=== PATIENT | male | born 1965 | race Caucasian/White ===

== ENCOUNTER 2019-06-19 15:36 | Inpatient (IN) | payer MEDICARE, OTHER ==
[2019-06-19 17:08] VITALS: BMI 22.4
--- NOTE | 2019-06-19 19:42 | HP ---
COWS - Scale Resting Pulse: 0= RI 80 or Below Sweatin= Chills/Flushing Restless Observation: 3= Extraneous Movement Pupil Size: 1= Pupils >than Normal Bone or Joint Aches: 0= None Runny Nose/ Eye Tearin= Nasal Congestion GI Upset > 30mins: 2= Nausea/Diarrhea Tremor Observation: 2= Slight Tremor Visible Yawning Observation: 0= None Anxiety or Irritability: 2=Irritable/Anxious Goose Flesh Skin: 0=Smooth Skin COWS Score: 12 CIWA Score - Admission Criteria [facility]ASAS Guidelines: Admission for Medically Managed Detox: Requires at least one of the followin. CIWA greater than 12 2. Seizures within the past 24 hours 3. Delirium tremens within the past 24 hours 4. Hallucinations within the past 24 hours 5. Acute intervention needed for co occurring medical disorder 6. Acute intervention needed for co occurring psychiatric disorder 7. Severe withdrawal that cannot be handled at a lower level of care (continued vomiting, continued diarrhea, abnormal vital signs) requiring intravenous medication and/or fluids 8. Admission ROS [facility] Allergies/Adverse Reactions: Allergies Allergy/AdvReac Type Severity Reaction Status Date / Time No Known Allergies Allergy Verified 06/19/19 16:59 History of Present Illness: This report was requested by: Corrie Villegas | Reference #: [id number] Others' Prescriptions Patient Name: Frandy Bhatt Date: 1965 Address: [address] [place] [address] Sex: Male Rx Written Rx Dispensed Drug Quantity Days Supply Prescriber Name 05/21/2019 05/22/2019 buprenorphine-naloxone 8-2 mg sl film 90 30 Mukerjee, Patricia 04/19/2019 04/23/2019 buprenorphine-naloxone 8-2 mg sl film 90 30 Mukerjee, Patricia 03/23/2019 03/23/2019 buprenorphine-naloxone 8-2 mg sl film 90 30 Mukerjee, Patricia 02/19/2019 02/20/2019 buprenorphine-naloxone 8-2 mg sl film 90 30 Mukerjee, Patricia 01/22/2019 01/23/2019 buprenorphine-naloxone 8-2 mg sl film 90 30 Mukerjee, Patricia 12/26/2018 12/26/2018 buprenorphine-naloxone 8-2 mg sl film 90 30 Mukerjee, Patricia 11/27/2018 11/27/2018 buprenorphine-naloxone 8-2 mg sl film 90 30 Patricia Taveras 10/30/2018 10/30/2018 buprenorphine-naloxone 8-2 mg sl film 90 30 Patricia Taveras 10/02/2018 10/02/2018 suboxone 8 mg-2 mg sl film 90 30 Patricia Taveras 09/19/2018 09/19/2018 suboxone 8 mg-2 mg sl film 42 14 Patricia Taveras Patient Name: Frandy Bhatt Date: 1965 Address: [facility] [place] [address] Sex: Male Rx Written Rx Dispensed Drug Quantity Days Supply Prescriber Name 09/12/2018 09/12/2018 suboxone 8 mg-2 mg sl film 21 7 Patricia Taveras 09/04/2018 09/04/2018 suboxone 8 mg-2 mg sl film 21 7 Patricia Taveras 05/09/2018 08/14/2018 zolpidem tartrate 10 mg tablet 30 30 Dagoberto Pate MD 05/09/2018 07/17/2018 zolpidem tartrate 10 mg tablet 30 30 Dagoberto Pate MD pt claims he lost his rx for Suboxone 3 weeks ago and started using heroin " I don't know , a long time ago " , current daily use 10 bags denies iv use , claims latest use yesterday morning . Planning to return to appt for rx for Suboxone " I need something now until " states was referred to this facility by " the laborer driver who brought me here " cocaine : 2 days ago , 20 $ denies IV cannabis : " someone offered me , I didn't buy it " tobacco : denies pmhx : denies psych : SAD , suicide attempts x 3 most recently 3 yrs ago by hanging pshx : left thumb frx 35 yrs ago shx : lives alone , on SSD Exam Limitations: Clinical Condition - Ebola screening Have you traveled outside of the country in the last 21 days: No Have you had contact with anyone from an Ebola affected area: No Patient History - Smoking Cessation Smoking history: Never smoked - Substances abused Heroin Substance route: Inhalation Frequency: Daily Amount used: 10 bags Age of first use: 26 Date of last use: 06/18/19 Admission Physical Exam S - Vital Signs Vital Signs: Vital Signs - 24 hr 06/19/19 16:58 Temperature 98.4 F Pulse Rate 74 Respiratory 16 Rate Blood Pressure 126/77 - Physical General Appearance: Yes: Moderate Distress, Irritable, Anxious HEENTM: Yes: EOMI, Hearing grossly Normal, Normocephalic, Normal Voice, Other ( dilated pupils) Respiratory: Yes: Chest Non-Tender, Lungs Clear, Normal Breath Sounds, No Respiratory Distress, No Accessory Muscle Use Neck: Yes: No masses,lesions,Nodules, Trachea in good position Cardiology: Yes: Regular Rhythm, Regular Rate, S1, S2 Abdominal: Yes: Soft, Tenderness (mild , diffuse), Other (hyperactive BS x 4) Musculoskeletal: Yes: Gait Steady Extremities: Yes: Normal Range of Motion, Non-Tender, Tremors Neurological: Yes: Fully Oriented, Alert, Motor Strength 5/5 Integumentary: Yes: Warm, Other (LLE superficial excoriations anterior tibia - denies recent injuries) - Diagnostic (1) Opiate use Current Visit: Yes Status: Acute (2) Cocaine abuse, episodic use Current Visit: Yes Status: Chronic Breathalyzer - Breathalyzer Breathalyzer: 0 Inpatient Rehab Admission - Rehab Decision to Admit Inpatient rehab admission?: No
[2019-06-19] MEDS ORDERED: ACETAMINOPHEN 325 MG TABLET (FP) PO PRN ×2 (19:52)
[2019-06-19] MEDS ORDERED: MAGNESIUM HYDROX 2400MG/30ML ORAL SUSPENSION 30 ML CUP PO PRN (19:52)
[2019-06-19] MEDS ORDERED: METHOCARBAMOL 500 MG TABLET PO PRN (19:52)
[2019-06-19] MEDS ORDERED: hydrOXYzine PAMOATE 25 MG CAPSULE (FP) PO PRN (19:52)
[2019-06-19] MEDS ORDERED: PROCHLORPERAZINE MALEATE 5 MG TABLET PO PRN (19:52)
[2019-06-19] MEDS ORDERED: MENTHOL/PHENOL 1 EACH UD MM PRN (19:52)
[2019-06-19] MEDS ORDERED: MAG HYDROX/AL HYDROX/SIMETH 30 ML UNIT-DOSE CUP PO PRN (19:52)
[2019-06-19] MEDS ORDERED: IBUPROFEN 400 MG TABLET (FP) PO PRN (19:52)
[2019-06-19] MEDS ORDERED: BISMUTH SUBSALICYLATE 524 MG/30 ML UD PO PRN (19:52)
[2019-06-19] MEDS ORDERED: MAGNESIUM CITRATE 300 ML BOTTLE PO PRN (19:52)
[2019-06-19] MEDS ORDERED: cloNIDine HCL 0.1 MG TABLET PO PRN (19:54)
[2019-06-19] MEDS ORDERED: METHADONE HCL 10 MG TABLET (FOR DETOX USE ONLY) PO ONE (19:54)
[2019-06-19] MEDS ORDERED: THIAMINE HCL 100 MG TABLET (FP) PO SCH (22:00)
[2019-06-19] MEDS ORDERED: MELATONIN 5 MG TABLETS PO PRN (22:00)
--- NOTE | 2019-06-20 08:17 | CONSULT ---
[facility] - Data Date of interview: 06/20/19 Admission source: Self-referred Identifying data: Mr Bhatt is a 53 years old male, father of a 24 years old son, unemployed Psychiatric History: Patient came to the office for interview. As sba underwriter started asking him questions, he said:" I don't want to discuss my personel issues and he walked out"
[2019-06-20] MEDS ORDERED: METHADONE HCL 5 MG TABLET (FOR DETOX USE ONLY) PO ONE (10:00)
[2019-06-20] MEDS ORDERED: PRENATAL VITAMINS W/ FOLIC ACID TABLET (FP) PO SCH (10:00)
[2019-06-20 10:18] LABS: MCHC 33.2 g/dl (32.0-35.9); MEAN CELL VOLUME 93.3 fl (80-96); MEAN PLT VOLUME 8.9 fl (7.5-11.1); PLATELET COUNT 239 K/MM3 (134-434); RDW 13.1 % (11.9-15.9); WHITE BLOOD COUNT 7.4 K/mm3 (4.0-10.0)
[2019-06-20 10:26] LABS: ALBUMIN 3.2 g/dl (3.4-5.0); BILIRUBIN,TOTAL 0.5 mg/dL (0.2-1); BLOOD UREA NITROGEN 16.9 mg/dL (7-18); CALCIUM 9.4 mg/dL (8.5-10.1); CREATININE 1.1 mg/dL (0.55-1.3); POTASSIUM 4.4 mmol/L (3.5-5.1); TOT PROT 6.4 g/dl (6.4-8.2)
--- NOTE | 2019-06-20 10:31 | PN ---
[facility] COWS - Scale Resting Pulse: 0= NM 80 or Below Sweatin= No chills or Flushing Restless Observation: 1= Difficult to Sit Still Pupil Size: 1= Pupils >than Normal Bone or Joint Aches: 1= Mild Discomfort Runny Nose/ Eye Tearin= Nasal Congestion GI Upset > 30mins: 1= Stomach Cramp Tremor Observation of Outstretched Hands: 2= Slight Tremor Visible Yawning Observation: 1= 1-2x During Session Anxiety or Irritability: 2=Irritable/Anxious Goose Flesh Skin: 0=Smooth Skin COWS Score: 10 [facility] Progress Note (SOAP) Subjective: alert,irritable,anxious,interrupted sleep,tremor,pain in the body and back Objective: 06/20/19 10:30 Vital Signs Temperature 97.6 F 06/20/19 09:25 Pulse Rate 71 06/20/19 09:25 Respiratory Rate 18 06/20/19 09:25 Blood Pressure 110/58 L 06/20/19 09:25 O2 Sat by Pulse Oximetry (%) Laboratory Last Values WBC 7.4 K/mm3 (4.0-10.0) 06/20/19 08:15 RBC 4.50 M/mm3 (4.00-5.60) 06/20/19 08:15 Hgb 14.0 GM/dL (11.7-16.9) 06/20/19 08:15 Hct 42.0 % (35.4-49) 06/20/19 08:15 MCV 93.3 fl (80-96) 06/20/19 08:15 MCH 31.0 pg (25.7-33.7) 06/20/19 08:15 MCHC 33.2 g/dl (32.0-35.9) 06/20/19 08:15 RDW 13.1 % (11.9-15.9) 06/20/19 08:15 Plt Count 239 K/MM3 (134-434) 06/20/19 08:15 MPV 8.9 fl (7.5-11.1) 06/20/19 08:15 Sodium 140 mmol/L (136-145) 06/20/19 08:15 Potassium 4.4 mmol/L (3.5-5.1) 06/20/19 08:15 Chloride 109 mmol/L (98-107) H 06/20/19 08:15 Carbon Dioxide 29 mmol/L (21-32) 06/20/19 08:15 Anion Gap 2 MMOL/L (8-16) L 06/20/19 08:15 BUN 16.9 mg/dL (7-18) 06/20/19 08:15 Creatinine 1.1 mg/dL (0.55-1.3) 06/20/19 08:15 Est GFR (CKD-EPI)AfAm 88.98 06/20/19 08:15 Est GFR (CKD-EPI)NonAf 76.77 06/20/19 08:15 Random Glucose 80 mg/dL (74-106) 06/20/19 08:15 Calcium 9.4 mg/dL (8.5-10.1) 06/20/19 08:15 Total Bilirubin 0.5 mg/dL (0.2-1) 06/20/19 08:15 AST 14 U/L (15-37) L 06/20/19 08:15 ALT 16 U/L (13-61) 06/20/19 08:15 Alkaline Phosphatase 62 U/L (45-117) 06/20/19 08:15 Total Protein 6.4 g/dl (6.4-8.2) 06/20/19 08:15 Albumin 3.2 g/dl (3.4-5.0) L 06/20/19 08:15 Assessment: 06/20/19 10:30 withdrawal symptom Plan: continue detox methadone regimen
[2019-06-20 12:57] VITALS: BP 118/71; PULSE 59; TEMP 98.2
--- NOTE | 2019-06-20 18:11 | DS ---
[facility] Detox Discharge Summary Admission Date: 06/19/19 - History Present History: Opioid Dependence Pertinent Past History: pt states he wants to leave today. Did not give a reason. Pt was admitted yesterday. According to the admit note pt has an appointment with prescribing provider for Suboxone. Pt states does not need any meds - Physical Exam Results Vital Signs: Vital Signs Temperature 98.2 F 06/20/19 12:56 Pulse Rate 59 L 06/20/19 12:56 Respiratory Rate 06/20/19 12:56 Blood Pressure 118/71 06/20/19 12:56 O2 Sat by Pulse Oximetry (%) - Medication Discharge Medications: Ambulatory Orders Quetiapine Fumarate [Seroquel -] 200 mg PO HS 06/19/19 Sertraline HCl [Zoloft -] 100 mg PO HS 06/19/19 - AMA Did Patient Leave Against Medical Advice: Yes
[2019-06-21] MEDS ORDERED: METHADONE HCL 10 MG TABLET (FOR DETOX USE ONLY) PO ONE (10:00)
[2019-06-22] MEDS ORDERED: METHADONE HCL 5 MG TABLET (FOR DETOX USE ONLY) PO ONE (06:00)
--- NOTE | 2019-06-22 13:25 | EKG ---
Test Reason : Blood Pressure : / mmHG Vent. Rate : 059 BPM Atrial Rate : 059 BPM P-R Int : 142 ms QRS Dur : 084 ms QT Int : 418 ms P-R-T Axes : 032 073 070 degrees QTc Int : 413 ms SINUS BRADYCARDIA NO PREVIOUS ECGS AVAILABLE Confirmed by NOHEMY MARCH MD ([id number]) on 06/22/2019 1:24:38 PM Referred By: SUSANNE VILLEGAS Confirmed By:NOHEMY MARCH MD
== END 2019-06-20 18:22 | disposition home or self-care (01) | DRG 897 ==
LOC: YASAS 15:36 → Y6N 20:54
PROVIDERS: ADMIT Allergy & Immunology; ATTEND Allergy & Immunology
PROC: HZ2ZZZZ Detoxification Services for Substance Abuse Treatment (ICD-10-PCS; principal; 2019-06-19)
DX: F11.23 Opioid dependence with withdrawal (principal); F14.10 Cocaine abuse, uncomplicated; Z91.5 Personal history of self-harm
CPT/HCPCS: 36415; 80053; 85027; 86593; 93005; 93010

== ENCOUNTER 2023-06-25 08:56 | Inpatient (IN) | payer OTHER ==
[2023-06-25 09:26] VITALS: BMI 20.7
[2023-06-25] MEDS ORDERED: POLYETHYLENE GLYCOL (HEALTHYLAX) 3350 17 GM PACKET PO PRN (09:41)
[2023-06-25] MEDS ORDERED: hydrOXYzine PAMOATE 25 MG CAPSULE (FP) PO PRN (09:41)
[2023-06-25] MEDS ORDERED: LOPERAMIDE HCL 2 MG CAPSULE PO PRN (09:41)
[2023-06-25] MEDS ORDERED: NALOXONE HCL 0.4 MG/ML VIAL IM PRN (09:41)
[2023-06-25] MEDS ORDERED: DICYCLOMINE HCL 10 MG CAPSULE PO PRN (09:41)
[2023-06-25] MEDS ORDERED: ACETAMINOPHEN 325 MG TABLET (FP) PO PRN (09:41)
[2023-06-25] MEDS ORDERED: ONDANSETRON *ODT* 4 MG TABLET SL PRN (09:41)
[2023-06-25] MEDS ORDERED: IBUPROFEN 600 MG TABLET (FP) PO PRN (09:41)
[2023-06-25] MEDS ORDERED: BENZOCAINE/MENTHOL (CHLORASEPTIC ) LOZENGE MM PRN (09:41)
[2023-06-25] MEDS ORDERED: BISMUTH SUBSALICYLATE 524 MG/30 ML PO PRN (09:41)
[2023-06-25] MEDS ORDERED: cloNIDine HCL 0.1 MG TABLET PO PRN (09:41)
[2023-06-25] MEDS ORDERED: MAG HYDROX/AL HYDROX/SIMETH 30 ML UNIT-DOSE CUP PO PRN (09:41)
[2023-06-25] MEDS ORDERED: BENZONATATE 200 MG CAPSULE PO PRN (09:41)
[2023-06-25] MEDS ORDERED: IBUPROFEN 400 MG TABLET (FP) PO PRN (09:41)
[2023-06-25] MEDS ORDERED: METHOCARBAMOL 500 MG TABLET PO PRN (09:41)
[2023-06-25] MEDS ORDERED: NALOXONE HCL (KLOXXADO) 8 MG SPRAY NS PRN (09:41)
[2023-06-25] MEDS ORDERED: guaiFENesin 600 MG TABLET.ER (FP) PO PRN (09:41)
[2023-06-25] MEDS ORDERED: MAGNESIUM HYDROX 2400MG/30ML ORAL SUSPENSION 30 ML CUP PO PRN (09:41)
[2023-06-25] MEDS ORDERED: methaDONE HCL 10 MG TABLET (FOR DETOX USE ONLY) ONE (09:53)
[2023-06-25] MEDS ORDERED: methaDONE HCL 10 MG TABLET (FOR DETOX USE ONLY) PO ONE (10:15)
[2023-06-25] MEDS: PRENATAL VITAMINS W/ FOLIC ACID TABLET (FP) PO SCH (10:17)
[2023-06-25] MEDS ORDERED: diazePAM 5 MG TABLET ONE (11:10)
[2023-06-25] MEDS: diazePAM 5 MG TABLET PO PRN ×2 (11:12→20:24)
[2023-06-25] MEDS: TAMSULOSIN HCL 0.4 MG CAP PO SCH (15:32)
[2023-06-25] MEDS: THIAMINE HCL 100 MG TABLET (FP) PO SCH (23:45)
[2023-06-25] MEDS: MELATONIN 5 MG TABLETS PO SCH (23:45)
[2023-06-25] MEDS: QUEtiapine FUMARATE 100 MG TABLET (FP) PO SCH (23:45)
[2023-06-26] MEDS: DEXTROAMPHETAMINE/AMPHETAMINE 10 MG CAP.ER.24H PO SCH (10:28)
[2023-06-26] MEDS: PRENATAL VITAMINS W/ FOLIC ACID TABLET (FP) PO SCH (10:28)
[2023-06-26] MEDS: SERTRALINE HCL 50 MG TABLET (FP) PO SCH (10:29)
[2023-06-26] MEDS: TAMSULOSIN HCL 0.4 MG CAP PO SCH (10:29)
[2023-06-26] MEDS: diazePAM 5 MG TABLET PO PRN ×2 (10:59→18:59)
[2023-06-26] MEDS: MELATONIN 5 MG TABLETS PO SCH (23:03)
[2023-06-26] MEDS: THIAMINE HCL 100 MG TABLET (FP) PO SCH (23:03)
[2023-06-26] MEDS: QUEtiapine FUMARATE 100 MG TABLET (FP) PO SCH (23:03)
[2023-06-27] MEDS ORDERED: methaDONE HCL 10 MG TABLET (FOR DETOX USE ONLY) PO ONE (10:00)
[2023-06-27] MEDS: SERTRALINE HCL 50 MG TABLET (FP) PO SCH (10:08)
[2023-06-27] MEDS: TAMSULOSIN HCL 0.4 MG CAP PO SCH (10:08)
[2023-06-27] MEDS: DEXTROAMPHETAMINE/AMPHETAMINE 10 MG CAP.ER.24H PO SCH (10:08)
[2023-06-27] MEDS: PRENATAL VITAMINS W/ FOLIC ACID TABLET (FP) PO SCH (10:10)
[2023-06-27] MEDS: diazePAM 5 MG TABLET PO PRN (10:10)
[2023-06-27 13:45] VITALS: BP 111/67; PULSE 85; RESP 18; TEMP 98.2
[2023-06-29] MEDS ORDERED: methaDONE HCL 10 MG TABLET (FOR DETOX USE ONLY) PO ONE (10:00)
== END 2023-06-27 15:20 | disposition left against medical advice (07) | DRG 894 ==
LOC: YASAS 08:56 → Y3N 10:41
PROVIDERS: ADMIT Allergy & Immunology; ATTEND Surgery
PROC: HZ2ZZZZ Detoxification Services for Substance Abuse Treatment (ICD-10-PCS; principal; 2023-06-25)
DX: F11.23 Opioid dependence with withdrawal (principal); F14.20 Cocaine dependence, uncomplicated; F10.230 Alcohol dependence with withdrawal, uncomplicated; F12.20 Cannabis dependence, uncomplicated; F25.9 Schizoaffective disorder, unspecified; F19.24 Other psychoactive substance dependence with psychoactive substance-induced mood disorder; F41.1 Generalized anxiety disorder; N40.0 Benign prostatic hyperplasia without lower urinary tract symptoms; Z63.4 Disappearance and death of family member
CPT/HCPCS: 87635

== ENCOUNTER 2023-07-23 15:12 | Inpatient (IN) | payer OTHER ==
[2023-07-23 16:42] VITALS: BMI 20.7
[2023-07-23] MEDS ORDERED: LOPERAMIDE HCL 2 MG CAPSULE PO PRN (17:08)
[2023-07-23] MEDS ORDERED: MAGNESIUM HYDROX 2400MG/30ML ORAL SUSPENSION 30 ML CUP PO PRN (17:08)
[2023-07-23] MEDS ORDERED: DOCUSATE SODIUM 100 MG CAPSULE (FP) PO PRN (17:08)
[2023-07-23] MEDS ORDERED: BENZOCAINE/MENTHOL (CHLORASEPTIC ) LOZENGE MM PRN (17:08)
[2023-07-23] MEDS ORDERED: NALOXONE HCL 0.4 MG/ML VIAL IM PRN (17:08)
[2023-07-23] MEDS ORDERED: BENZONATATE 200 MG CAPSULE PO PRN (17:08)
[2023-07-23] MEDS ORDERED: POLYETHYLENE GLYCOL (HEALTHYLAX) 3350 17 GM PACKET PO PRN (17:08)
[2023-07-23] MEDS ORDERED: NICOTINE POLACRILEX 2 MG GUM BUC PRN (17:08)
[2023-07-23] MEDS ORDERED: ACETAMINOPHEN 325 MG TABLET (FP) PO PRN (17:08)
[2023-07-23] MEDS ORDERED: NALOXONE HCL (KLOXXADO) 8 MG SPRAY NS PRN (17:08)
[2023-07-23] MEDS ORDERED: BISMUTH SUBSALICYLATE 524 MG/30 ML PO PRN (17:08)
[2023-07-23] MEDS ORDERED: MAG HYDROX/AL HYDROX/SIMETH 30 ML UNIT-DOSE CUP PO PRN (17:08)
[2023-07-23] MEDS ORDERED: guaiFENesin 600 MG TABLET.ER (FP) PO PRN (17:08)
[2023-07-23] MEDS ORDERED: IBUPROFEN 400 MG TABLET (FP) PO PRN (17:08)
[2023-07-23] MEDS ORDERED: P-EPHED 60MG/TRIPROLIDI 2.5MG TABLET PO PRN (17:08)
[2023-07-23] MEDS ORDERED: ONDANSETRON *ODT* 4 MG TABLET SL PRN (17:08)
[2023-07-23] MEDS ORDERED: IBUPROFEN 600 MG TABLET (FP) PO PRN (17:08)
[2023-07-23] MEDS ORDERED: DICYCLOMINE HCL 10 MG CAPSULE PO PRN (17:08)
[2023-07-23] MEDS ORDERED: methaDONE HCL 10 MG TABLET (FOR DETOX USE ONLY) PO ONE (17:42)
[2023-07-23] MEDS ORDERED: cloNIDine HCL 0.1 MG TABLET PO PRN (17:42)
[2023-07-23] MEDS ORDERED: METHOCARBAMOL 500 MG TABLET ONE (17:50)
[2023-07-23] MEDS ORDERED: methaDONE HCL 10 MG TABLET (FOR DETOX USE ONLY) ONE (17:50)
[2023-07-23] MEDS: METHOCARBAMOL 500 MG TABLET PO PRN (17:58)
[2023-07-23] MEDS ORDERED: MELATONIN 5 MG TABLETS PO SCH (22:00)
[2023-07-23] MEDS: TAMSULOSIN HCL 0.4 MG CAP PO SCH (22:36)
[2023-07-23] MEDS: THIAMINE HCL 100 MG TABLET (FP) PO SCH (22:36)
[2023-07-24] MEDS: PRENATAL VITAMINS W/ FOLIC ACID TABLET (FP) PO SCH (10:38)
[2023-07-24] MEDS: diazePAM 5 MG TABLET PO PRN ×3 (10:39→22:20)
[2023-07-24] MEDS: METHOCARBAMOL 500 MG TABLET PO PRN (10:41)
[2023-07-24] MEDS: DEXTROAMPHETAMINE/AMPHETAMINE 10 MG CAP.ER.24H PO SCH (11:42)
[2023-07-24] MEDS ORDERED: QUEtiapine FUMARATE 100 MG TABLET (FP) PO SCH (22:00)
[2023-07-24] MEDS: THIAMINE HCL 100 MG TABLET (FP) PO SCH (22:20)
[2023-07-24] MEDS: SERTRALINE HCL 50 MG TABLET (FP) PO SCH (22:20)
[2023-07-24] MEDS: TAMSULOSIN HCL 0.4 MG CAP PO SCH (22:20)
[2023-07-25] MEDS ORDERED: methaDONE HCL 10 MG TABLET (FOR DETOX USE ONLY) PO ONE (10:00)
[2023-07-25] MEDS: DEXTROAMPHETAMINE/AMPHETAMINE 10 MG CAP.ER.24H PO SCH (10:25)
[2023-07-25] MEDS: PRENATAL VITAMINS W/ FOLIC ACID TABLET (FP) PO SCH (10:26)
[2023-07-25] MEDS: diazePAM 5 MG TABLET PO PRN ×2 (17:48→22:19)
[2023-07-25] MEDS: TAMSULOSIN HCL 0.4 MG CAP PO SCH (22:19)
[2023-07-25] MEDS: QUEtiapine FUMARATE 100 MG TABLET (FP) PO SCH (22:19)
[2023-07-25] MEDS: SERTRALINE HCL 50 MG TABLET (FP) PO SCH (22:19)
[2023-07-25] MEDS: THIAMINE HCL 100 MG TABLET (FP) PO SCH (22:19)
[2023-07-26] MEDS: DEXTROAMPHETAMINE/AMPHETAMINE 10 MG CAP.ER.24H PO SCH (09:40)
[2023-07-26] MEDS: PRENATAL VITAMINS W/ FOLIC ACID TABLET (FP) PO SCH (09:41)
[2023-07-26] MEDS: SERTRALINE HCL 50 MG TABLET (FP) PO SCH (21:22)
[2023-07-26] MEDS: TAMSULOSIN HCL 0.4 MG CAP PO SCH (21:22)
[2023-07-26] MEDS: QUEtiapine FUMARATE 100 MG TABLET (FP) PO SCH (21:22)
[2023-07-26] MEDS: THIAMINE HCL 100 MG TABLET (FP) PO SCH (21:23)
[2023-07-27] MEDS: DEXTROAMPHETAMINE/AMPHETAMINE 10 MG CAP.ER.24H PO SCH (09:38)
[2023-07-27] MEDS: PRENATAL VITAMINS W/ FOLIC ACID TABLET (FP) PO SCH (09:39)
[2023-07-27] MEDS ORDERED: methaDONE HCL 10 MG TABLET (FOR DETOX USE ONLY) PO ONE (10:00)
[2023-07-27 10:41] LABS: POTASSIUM 3.8 mmol/L (3.5-5.1)
[2023-07-27 10:45] LABS: HEMATOCRIT 37.9 % (35.4-49); HEMOGLOBIN 12.4 GM/dL (11.7-16.9); MCH 30.7 pg (25.7-33.7); MCHC 32.7 g/dl (32.0-35.9); MEAN CELL VOLUME 93.8 fl (80-96); PLATELET COUNT 178 10^3/uL (134-434); RBC 4.04 M/mm3 (4.00-5.60); RDW 13.2 % (11.9-15.9); WHITE BLOOD COUNT 9.4 K/mm3 (4.0-10.0)
[2023-07-27 11:19] LABS: CALCIUM 8.8 mg/dL (8.5-10.1)
[2023-07-27 11:21] LABS: ALBUMIN 2.4 g/dl (3.4-5.0)
[2023-07-27 11:24] LABS: CREATININE 0.8 mg/dL (0.55-1.3)
[2023-07-27 11:25] LABS: TOT PROT 5.9 g/dl (6.4-8.2)
[2023-07-27 11:26] LABS: BILIRUBIN,TOTAL 0.5 mg/dL (0.2-1)
[2023-07-27] MEDS: TAMSULOSIN HCL 0.4 MG CAP PO SCH (22:52)
[2023-07-27] MEDS: THIAMINE HCL 100 MG TABLET (FP) PO SCH (22:52)
[2023-07-27] MEDS: QUEtiapine FUMARATE 100 MG TABLET (FP) PO SCH (22:53)
[2023-07-27] MEDS: SERTRALINE HCL 50 MG TABLET (FP) PO SCH (22:53)
[2023-07-28 06:35] VITALS: RESP 16
[2023-07-28] MEDS: DEXTROAMPHETAMINE/AMPHETAMINE 10 MG CAP.ER.24H PO SCH (10:56)
[2023-07-28] MEDS: PRENATAL VITAMINS W/ FOLIC ACID TABLET (FP) PO SCH (10:56)
[2023-07-28 11:08] VITALS: BP 93/65; PULSE 69; TEMP 96.9
== END 2023-07-28 14:20 | disposition other institution (70) | DRG 897 ==
LOC: YASAS 15:12 → Y3N 17:27 → Y6N 07-27 13:27
PROVIDERS: ADMIT Allergy & Immunology; ATTEND Surgery
PROC: HZ2ZZZZ Detoxification Services for Substance Abuse Treatment (ICD-10-PCS; principal; 2023-07-23)
DX: F11.23 Opioid dependence with withdrawal (principal); F14.20 Cocaine dependence, uncomplicated; F19.282 Other psychoactive substance dependence with psychoactive substance-induced sleep disorder; F19.280 Other psychoactive substance dependence with psychoactive substance-induced anxiety disorder; F25.9 Schizoaffective disorder, unspecified; F90.9 Attention-deficit hyperactivity disorder, unspecified type; N40.0 Benign prostatic hyperplasia without lower urinary tract symptoms
CPT/HCPCS: 36415; 80053; 83036; 85027; 86780; 87635; 87811

== ENCOUNTER 2023-07-28 14:37 | Inpatient (IN) | payer OTHER ==
[2023-07-28 15:20] VITALS: BMI 20.2
[2023-07-28] MEDS ORDERED: guaiFENesin 600 MG TABLET.ER (FP) PO PRN (15:25)
[2023-07-28] MEDS ORDERED: LOPERAMIDE HCL 2 MG CAPSULE PO PRN (15:25)
[2023-07-28] MEDS ORDERED: MAG HYDROX/AL HYDROX/SIMETH 30 ML UNIT-DOSE CUP PO PRN (15:25)
[2023-07-28] MEDS ORDERED: BENZONATATE 200 MG CAPSULE PO PRN (15:25)
[2023-07-28] MEDS ORDERED: POLYETHYLENE GLYCOL (HEALTHYLAX) 3350 17 GM PACKET PO PRN (15:25)
[2023-07-28] MEDS ORDERED: NALOXONE HCL (KLOXXADO) 8 MG SPRAY NS PRN (15:25)
[2023-07-28] MEDS ORDERED: IBUPROFEN 400 MG TABLET (FP) PO PRN (15:25)
[2023-07-28] MEDS ORDERED: hydrOXYzine PAMOATE 25 MG CAPSULE (FP) PO PRN (15:25)
[2023-07-28] MEDS ORDERED: IBUPROFEN 600 MG TABLET (FP) PO PRN (15:25)
[2023-07-28] MEDS ORDERED: BENZOCAINE/MENTHOL (CHLORASEPTIC ) LOZENGE MM PRN (15:25)
[2023-07-28] MEDS ORDERED: ACETAMINOPHEN 325 MG TABLET (FP) PO PRN (15:25)
[2023-07-28] MEDS ORDERED: NICOTINE 14 MG/24 HOURS TOPICAL PATCH TD PRN (15:25)
[2023-07-28] MEDS ORDERED: COLLOIDAL OATMEAL 1 BAR EACH TP PRN (15:25)
[2023-07-28] MEDS ORDERED: NALOXONE HCL 0.4 MG/ML VIAL IVPUSH PRN (15:25)
[2023-07-28] MEDS ORDERED: MAGNESIUM HYDROX 2400MG/30ML ORAL SUSPENSION 30 ML CUP PO PRN (15:25)
[2023-07-28] MEDS ORDERED: AMMONIUM LACTATE 12% LOTION 225 GM BOTTLE TP PRN (15:25)
[2023-07-28] MEDS ORDERED: NICOTINE POLACRILEX 4 MG GUM BUC PRN (15:25)
[2023-07-28] MEDS ORDERED: METHOCARBAMOL 500 MG TABLET PO PRN (15:25)
[2023-07-28] MEDS: MELATONIN 5 MG TABLETS PO SCH (21:24)
[2023-07-28] MEDS: THIAMINE HCL 100 MG TABLET (FP) PO SCH (21:25)
[2023-07-28] MEDS: QUEtiapine FUMARATE 100 MG TABLET (FP) PO SCH (21:25)
[2023-07-28] MEDS: TAMSULOSIN HCL 0.4 MG CAP PO SCH (21:25)
[2023-07-28] MEDS ORDERED: SERTRALINE HCL 50 MG TABLET (FP) PO SCH (22:00)
[2023-07-29 07:03] VITALS: BP 106/61; PULSE 68; RESP 18; TEMP 97.7
[2023-07-29] MEDS ORDERED: SERTRALINE HCL 50 MG TABLET (FP) PO SCH (08:57)
[2023-07-29] MEDS: DEXTROAMPHETAMINE/AMPHETAMINE 10 MG CAP.ER.24H PO SCH (09:24)
[2023-07-29] MEDS: PRENATAL VITAMINS W/ FOLIC ACID TABLET (FP) PO SCH (09:25)
[2023-07-29] MEDS: SERTRALINE HCL 50 MG TABLET (FP) PO SCH (09:27)
[2023-07-29] MEDS: THIAMINE HCL 100 MG TABLET (FP) PO SCH (21:14)
[2023-07-29] MEDS: MELATONIN 5 MG TABLETS PO SCH (21:14)
[2023-07-29] MEDS: QUEtiapine FUMARATE 100 MG TABLET (FP) PO SCH (21:14)
[2023-07-29] MEDS: TAMSULOSIN HCL 0.4 MG CAP PO SCH (21:14)
[2023-07-30] MEDS: PRENATAL VITAMINS W/ FOLIC ACID TABLET (FP) PO SCH (09:47)
[2023-07-30] MEDS: SERTRALINE HCL 50 MG TABLET (FP) PO SCH (09:47)
[2023-07-30] MEDS: DEXTROAMPHETAMINE/AMPHETAMINE 10 MG CAP.ER.24H PO SCH (09:48)
== END 2023-07-30 18:38 | disposition left against medical advice (07) | DRG 894 ==
LOC: YASAS 14:37 → Y5N 14:38
PROVIDERS: ADMIT Allergy & Immunology; ATTEND Psychiatry & Neurology Pain Medicine
PROC: HZ42ZZZ Group Counseling for Substance Abuse Treatment, Cognitive-Behavioral (ICD-10-PCS; principal; 2023-07-28)
DX: F11.20 Opioid dependence, uncomplicated (principal); F14.20 Cocaine dependence, uncomplicated; F25.9 Schizoaffective disorder, unspecified; F90.9 Attention-deficit hyperactivity disorder, unspecified type; F41.9 Anxiety disorder, unspecified; N40.0 Benign prostatic hyperplasia without lower urinary tract symptoms

== ENCOUNTER 2023-08-23 17:00 | Inpatient (IN) | payer OTHER ==
[2023-08-23 17:58] VITALS: BMI 23.3
[2023-08-23] MEDS ORDERED: LOPERAMIDE HCL 2 MG CAPSULE PO PRN (22:31)
[2023-08-23] MEDS ORDERED: ONDANSETRON *ODT* 4 MG TABLET SL PRN (22:31)
[2023-08-23] MEDS ORDERED: NALOXONE HCL (KLOXXADO) 8 MG SPRAY NS PRN (22:31)
[2023-08-23] MEDS ORDERED: MAG HYDROX/AL HYDROX/SIMETH 30 ML UNIT-DOSE CUP PO PRN (22:31)
[2023-08-23] MEDS ORDERED: NICOTINE POLACRILEX 2 MG LOZENGE BC PRN (22:31)
[2023-08-23] MEDS ORDERED: BISMUTH SUBSALICYLATE 524 MG/30 ML PO PRN (22:31)
[2023-08-23] MEDS ORDERED: P-EPHED 60MG/TRIPROLIDI 2.5MG TABLET PO PRN (22:31)
[2023-08-23] MEDS ORDERED: guaiFENesin 600 MG TABLET.ER (FP) PO PRN (22:31)
[2023-08-23] MEDS ORDERED: MAGNESIUM HYDROX 2400MG/30ML ORAL SUSPENSION 30 ML CUP PO PRN (22:31)
[2023-08-23] MEDS ORDERED: ACETAMINOPHEN 325 MG TABLET (FP) PO PRN (22:31)
[2023-08-23] MEDS ORDERED: BENZOCAINE/MENTHOL (CHLORASEPTIC ) LOZENGE MM PRN (22:31)
[2023-08-23] MEDS ORDERED: POLYETHYLENE GLYCOL (HEALTHYLAX) 3350 17 GM PACKET PO PRN (22:31)
[2023-08-23] MEDS ORDERED: IBUPROFEN 600 MG TABLET (FP) PO PRN (22:31)
[2023-08-23] MEDS ORDERED: IBUPROFEN 400 MG TABLET (FP) PO PRN (22:31)
[2023-08-23] MEDS ORDERED: NALOXONE HCL 0.4 MG/ML VIAL IM PRN (22:31)
[2023-08-23] MEDS ORDERED: DICYCLOMINE HCL 10 MG CAPSULE PO PRN (22:31)
[2023-08-23] MEDS ORDERED: BENZONATATE 200 MG CAPSULE PO PRN (22:31)
[2023-08-23] MEDS ORDERED: methaDONE HCL 10 MG TABLET (FOR DETOX USE ONLY) PO ONE (23:30)
[2023-08-24] MEDS: METHOCARBAMOL 500 MG TABLET PO PRN ×3 (03:45→19:55)
[2023-08-24] MEDS: TAMSULOSIN HCL 0.4 MG CAP PO SCH (07:43)
[2023-08-24] MEDS: PRENATAL VITAMINS W/ FOLIC ACID TABLET (FP) PO SCH (09:55)
[2023-08-24] MEDS: NICOTINE 21 MG/24 HOURS TOPICAL PATCH TD SCH (09:59)
[2023-08-24] MEDS: SERTRALINE HCL 50 MG TABLET (FP) PO SCH (11:31)
[2023-08-24] MEDS: DEXTROAMPHETAMINE/AMPHETAMINE 10 MG CAP.ER.24H PO SCH (11:31)
[2023-08-24 12:42] LABS: HIV INTERPRETATION NEGATIVE (NEGATIVE)
[2023-08-24] MEDS ORDERED: methaDONE HCL 10 MG TABLET PO ONE (13:21)
[2023-08-24] MEDS: THIAMINE HCL 100 MG TABLET (FP) PO SCH (21:53)
[2023-08-24] MEDS: QUEtiapine FUMARATE 300 MG TABLET PO SCH (21:53)
[2023-08-24] MEDS ORDERED: MELATONIN 5 MG TABLETS PO SCH (22:00)
[2023-08-25] MEDS: TAMSULOSIN HCL 0.4 MG CAP PO SCH (09:06)
[2023-08-25] MEDS ORDERED: methaDONE HCL 10 MG TABLET (FOR DETOX USE ONLY) PO ONE (10:00)
[2023-08-25] MEDS: DEXTROAMPHETAMINE/AMPHETAMINE 10 MG CAP.ER.24H PO SCH (10:12)
[2023-08-25] MEDS: PRENATAL VITAMINS W/ FOLIC ACID TABLET (FP) PO SCH (10:13)
[2023-08-25] MEDS: SERTRALINE HCL 50 MG TABLET (FP) PO SCH (10:13)
[2023-08-25] MEDS: NICOTINE 21 MG/24 HOURS TOPICAL PATCH TD SCH (10:13)
[2023-08-25] MEDS: METHOCARBAMOL 500 MG TABLET PO PRN (11:11)
[2023-08-25] MEDS ORDERED: diazePAM 5 MG TABLET PO PRN (13:43)
[2023-08-25] MEDS: QUEtiapine FUMARATE 300 MG TABLET PO SCH (22:06)
[2023-08-25] MEDS: THIAMINE HCL 100 MG TABLET (FP) PO SCH (22:06)
[2023-08-26] MEDS: TAMSULOSIN HCL 0.4 MG CAP PO SCH (07:41)
[2023-08-26] MEDS: DEXTROAMPHETAMINE/AMPHETAMINE 10 MG CAP.ER.24H PO SCH (10:18)
[2023-08-26] MEDS: PRENATAL VITAMINS W/ FOLIC ACID TABLET (FP) PO SCH (10:19)
[2023-08-26] MEDS: SERTRALINE HCL 50 MG TABLET (FP) PO SCH (10:19)
[2023-08-26] MEDS: NICOTINE 21 MG/24 HOURS TOPICAL PATCH TD SCH (10:19)
[2023-08-26] MEDS: METHOCARBAMOL 500 MG TABLET PO PRN ×2 (12:20→17:52)
[2023-08-26] MEDS: QUEtiapine FUMARATE 300 MG TABLET PO SCH (22:47)
[2023-08-26] MEDS: THIAMINE HCL 100 MG TABLET (FP) PO SCH (22:47)
[2023-08-27] MEDS: TAMSULOSIN HCL 0.4 MG CAP PO SCH (08:13)
[2023-08-27] MEDS ORDERED: methaDONE HCL 10 MG TABLET (FOR DETOX USE ONLY) PO ONE (10:00)
[2023-08-27] MEDS: SERTRALINE HCL 50 MG TABLET (FP) PO SCH (10:12)
[2023-08-27] MEDS: METHOCARBAMOL 500 MG TABLET PO PRN ×2 (10:12→21:42)
[2023-08-27] MEDS: DEXTROAMPHETAMINE/AMPHETAMINE 10 MG CAP.ER.24H PO SCH (10:13)
[2023-08-27] MEDS: PRENATAL VITAMINS W/ FOLIC ACID TABLET (FP) PO SCH (10:14)
[2023-08-27] MEDS: NICOTINE 21 MG/24 HOURS TOPICAL PATCH TD SCH (10:15)
[2023-08-27] MEDS: QUEtiapine FUMARATE 300 MG TABLET PO SCH (21:40)
[2023-08-27] MEDS: THIAMINE HCL 100 MG TABLET (FP) PO SCH (21:40)
[2023-08-28] MEDS: TAMSULOSIN HCL 0.4 MG CAP PO SCH (09:25)
[2023-08-28] MEDS: PRENATAL VITAMINS W/ FOLIC ACID TABLET (FP) PO SCH (10:21)
[2023-08-28] MEDS: SERTRALINE HCL 50 MG TABLET (FP) PO SCH (10:22)
[2023-08-28] MEDS: NICOTINE 21 MG/24 HOURS TOPICAL PATCH TD SCH (10:22)
[2023-08-28] MEDS: METHOCARBAMOL 500 MG TABLET PO PRN ×2 (10:23→17:15)
[2023-08-28] MEDS: DEXTROAMPHETAMINE/AMPHETAMINE 10 MG CAP.ER.24H PO SCH (10:23)
[2023-08-28] MEDS: THIAMINE HCL 100 MG TABLET (FP) PO SCH (23:54)
[2023-08-28] MEDS: QUEtiapine FUMARATE 300 MG TABLET PO SCH (23:54)
[2023-08-29] MEDS: TAMSULOSIN HCL 0.4 MG CAP PO SCH (07:38)
[2023-08-29] MEDS: SERTRALINE HCL 50 MG TABLET (FP) PO SCH (09:18)
[2023-08-29] MEDS: DEXTROAMPHETAMINE/AMPHETAMINE 10 MG CAP.ER.24H PO SCH (09:18)
[2023-08-29] MEDS: PRENATAL VITAMINS W/ FOLIC ACID TABLET (FP) PO SCH (09:18)
[2023-08-29] MEDS: NICOTINE 21 MG/24 HOURS TOPICAL PATCH TD SCH (09:20)
[2023-08-29] MEDS: METHOCARBAMOL 500 MG TABLET PO PRN (17:02)
[2023-08-29] MEDS: QUEtiapine FUMARATE 300 MG TABLET PO SCH (21:22)
[2023-08-29] MEDS: THIAMINE HCL 100 MG TABLET (FP) PO SCH (21:22)
[2023-08-30 06:00] VITALS: RESP 16
[2023-08-30] MEDS: SERTRALINE HCL 50 MG TABLET (FP) PO SCH (09:19)
[2023-08-30] MEDS: DEXTROAMPHETAMINE/AMPHETAMINE 10 MG CAP.ER.24H PO SCH (09:20)
[2023-08-30] MEDS: NICOTINE 21 MG/24 HOURS TOPICAL PATCH TD SCH (09:21)
[2023-08-30] MEDS: TAMSULOSIN HCL 0.4 MG CAP PO SCH (09:21)
[2023-08-30] MEDS: PRENATAL VITAMINS W/ FOLIC ACID TABLET (FP) PO SCH (09:21)
[2023-08-30 17:16] VITALS: BP 125/76; PULSE 83; TEMP 97.5
== END 2023-08-30 17:01 | disposition other institution (70) | DRG 897 ==
LOC: YASAS 17:00 → Y6N 22:39
PROVIDERS: ADMIT Allergy & Immunology; ATTEND Allergy & Immunology
PROC: HZ2ZZZZ Detoxification Services for Substance Abuse Treatment (ICD-10-PCS; principal; 2023-08-23)
DX: F11.23 Opioid dependence with withdrawal (principal); F14.20 Cocaine dependence, uncomplicated; F17.213 Nicotine dependence, cigarettes, with withdrawal; F25.1 Schizoaffective disorder, depressive type; F90.9 Attention-deficit hyperactivity disorder, unspecified type; N40.0 Benign prostatic hyperplasia without lower urinary tract symptoms
CPT/HCPCS: 36415; 87389; 87635

== ENCOUNTER 2023-08-30 17:09 | Inpatient (IN) | payer OTHER ==
[2023-08-30] MEDS ORDERED: IBUPROFEN 600 MG TABLET (FP) PO PRN (18:00)
[2023-08-30] MEDS ORDERED: guaiFENesin 600 MG TABLET.ER (FP) PO PRN (18:00)
[2023-08-30] MEDS ORDERED: POLYETHYLENE GLYCOL (HEALTHYLAX) 3350 17 GM PACKET PO PRN (18:00)
[2023-08-30] MEDS ORDERED: BENZOCAINE/MENTHOL (CHLORASEPTIC ) LOZENGE MM PRN (18:00)
[2023-08-30] MEDS ORDERED: IBUPROFEN 400 MG TABLET (FP) PO PRN (18:00)
[2023-08-30] MEDS ORDERED: ACETAMINOPHEN 325 MG TABLET (FP) PO PRN (18:00)
[2023-08-30] MEDS ORDERED: MAGNESIUM HYDROX 2400MG/30ML ORAL SUSPENSION 30 ML CUP PO PRN (18:00)
[2023-08-30] MEDS ORDERED: BENZONATATE 200 MG CAPSULE PO PRN (18:00)
[2023-08-30] MEDS ORDERED: MAG HYDROX/AL HYDROX/SIMETH 30 ML UNIT-DOSE CUP PO PRN (18:00)
[2023-08-30] MEDS ORDERED: LOPERAMIDE HCL 2 MG CAPSULE PO PRN (18:00)
[2023-08-30] MEDS ORDERED: METHOCARBAMOL 500 MG TABLET PO PRN (18:00)
[2023-08-30] MEDS ORDERED: P-EPHED 60MG/TRIPROLIDI 2.5MG TABLET PO PRN (18:00)
[2023-08-30] MEDS: MELATONIN 5 MG TABLETS PO SCH (21:09)
[2023-08-30] MEDS: THIAMINE HCL 100 MG TABLET (FP) PO SCH (21:09)
[2023-08-30] MEDS ORDERED: QUEtiapine FUMARATE 100 MG TABLET (FP) PO SCH (22:00)
[2023-08-31] MEDS: TAMSULOSIN HCL 0.4 MG CAP PO SCH ×2 (09:22→11:04)
[2023-08-31] MEDS: PRENATAL VITAMINS W/ FOLIC ACID TABLET (FP) PO SCH ×2 (09:22→11:04)
[2023-08-31] MEDS ORDERED: SUMAtriptan SUCCINATE 25 MG TABLET PO ONE (10:00)
[2023-08-31] MEDS: DEXTROAMPHETAMINE/AMPHETAMINE 10 MG CAP.ER.24H PO SCH (14:52)
[2023-08-31] MEDS: SERTRALINE HCL 50 MG TABLET (FP) PO SCH (14:53)
[2023-08-31] MEDS: THIAMINE HCL 100 MG TABLET (FP) PO SCH (21:23)
[2023-08-31] MEDS: MELATONIN 5 MG TABLETS PO SCH (21:23)
[2023-08-31] MEDS ORDERED: QUEtiapine FUMARATE 100 MG TABLET (FP) ONE (21:23)
[2023-08-31] MEDS ORDERED: QUEtiapine FUMARATE 300 MG TABLET PO SCH (22:00)
[2023-09-01] MEDS: PRENATAL VITAMINS W/ FOLIC ACID TABLET (FP) PO SCH (09:07)
[2023-09-01] MEDS: TAMSULOSIN HCL 0.4 MG CAP PO SCH (09:07)
[2023-09-01] MEDS: SERTRALINE HCL 50 MG TABLET (FP) PO SCH (09:07)
[2023-09-01] MEDS: DEXTROAMPHETAMINE/AMPHETAMINE 10 MG CAP.ER.24H PO SCH (09:07)
[2023-09-01 20:05] VITALS: BP 146/79; PULSE 100; RESP 17; TEMP 97.8
== END 2023-09-01 18:45 | disposition left against medical advice (07) | DRG 894 ==
LOC: YASAS 17:09 → Y3W 17:17
PROVIDERS: ADMIT Allergy & Immunology; ATTEND Psychiatry & Neurology Pain Medicine
PROC: HZ42ZZZ Group Counseling for Substance Abuse Treatment, Cognitive-Behavioral (ICD-10-PCS; principal; 2023-08-30)
DX: F11.20 Opioid dependence, uncomplicated (principal); F14.20 Cocaine dependence, uncomplicated; F17.210 Nicotine dependence, cigarettes, uncomplicated; N40.0 Benign prostatic hyperplasia without lower urinary tract symptoms; Z86.59 Personal history of other mental and behavioral disorders

== ENCOUNTER 2024-03-22 10:13 | Inpatient (IN) | payer OTHER ==
[2024-03-22 10:46] VITALS: BMI 26.2
[2024-03-22] MEDS ORDERED: BISMUTH SUBSALICYLATE 262 MG/15 ML BTL PO PRN (12:07)
[2024-03-22] MEDS ORDERED: LOPERAMIDE HCL 2 MG CAPSULE PO PRN (12:07)
[2024-03-22] MEDS ORDERED: POLYETHYLENE GLYCOL (HEALTHYLAX) 3350 17 GM PACKET PO PRN (12:07)
[2024-03-22] MEDS ORDERED: ACETAMINOPHEN 325 MG TABLET (FP) PO PRN (12:07)
[2024-03-22] MEDS ORDERED: DICYCLOMINE HCL 10 MG CAPSULE PO PRN (12:07)
[2024-03-22] MEDS ORDERED: MAG HYDROX/AL HYDROX/SIMETH 30 ML UNIT-DOSE CUP PO PRN (12:07)
[2024-03-22] MEDS ORDERED: NALOXONE (NARCAN) HCL 4 MG/0.1 ML SPRAY NS PRN (12:07)
[2024-03-22] MEDS ORDERED: MAGNESIUM HYDROX 2400MG/30ML ORAL SUSPENSION 30 ML CUP PO PRN (12:07)
[2024-03-22] MEDS ORDERED: BENZONATATE 200 MG CAPSULE PO PRN (12:07)
[2024-03-22] MEDS ORDERED: IBUPROFEN 400 MG TABLET (FP) PO PRN (12:07)
[2024-03-22] MEDS ORDERED: NALOXONE HCL 0.4 MG/ML VIAL IM PRN (12:07)
[2024-03-22] MEDS ORDERED: ONDANSETRON *ODT* 4 MG TABLET SL PRN (12:07)
[2024-03-22] MEDS ORDERED: guaiFENesin 600 MG TABLET.ER (FP) PO PRN (12:07)
[2024-03-22] MEDS ORDERED: METHOCARBAMOL 500 MG TABLET PO PRN (12:07)
[2024-03-22] MEDS ORDERED: P-EPHED 60MG/TRIPROLIDI 2.5MG TABLET PO PRN (12:07)
[2024-03-22] MEDS ORDERED: methaDONE HCL 10 MG TABLET (FOR DETOX USE ONLY) ONE (13:02)
[2024-03-22] MEDS: methaDONE HCL 10 MG TABLET (FOR DETOX USE ONLY) PO ONE (13:08)
[2024-03-22] MEDS: THIAMINE 100 MG TABLET PO SCH (22:27)
[2024-03-22] MEDS: MELATONIN 5 MG TABLETS PO SCH (22:30)
[2024-03-23] MEDS: DEXTROAMPHETAMINE/AMPHETAMINE 10 MG CAP.ER.24H PO SCH (07:05)
[2024-03-23] MEDS: TAMSULOSIN HCL 0.4 MG CAP PO SCH (07:48)
[2024-03-23] MEDS: BENZOCAINE/MENTHOL (CHLORASEPTIC ) LOZENGE MM PRN (08:13)
[2024-03-23] MEDS: METHOCARBAMOL 500 MG TABLET PO PRN (08:35)
[2024-03-23] MEDS: SERTRALINE HCL 50 MG TABLET (FP) PO SCH (09:12)
[2024-03-23] MEDS: PRENATAL VITAMINS W/ FOLIC ACID TABLET (FP) PO SCH (09:13)
[2024-03-23] MEDS: NICOTINE POLACRILEX 4 MG LOZENGE BC PRN (09:15)
[2024-03-23] MEDS: SERTRALINE HCL 50 MG TABLET (FP) PO ONE (11:50)
[2024-03-23 11:52] LABS: HEMATOCRIT 37.4 % (35.4-49); HEMOGLOBIN 12.9 GM/dL (11.7-16.9); MCH 30.5 pg (25.7-33.7); MCHC 34.4 g/dl (32.0-35.9); MEAN CELL VOLUME 88.8 fl (80-96); MEAN PLT VOLUME 9.5 fl (7.5-11.1); PLATELET COUNT 202 10^3/uL (134-434); RBC 4.22 M/mm3 (4.00-5.60); RDW 12.5 % (11.9-15.9); WHITE BLOOD COUNT 13.1 K/mm3 (4.0-10.0)
[2024-03-23 11:55] LABS: POTASSIUM 3.5 mmol/L (3.5-5.1)
[2024-03-23 11:58] LABS: CALCIUM 9.2 mg/dL (8.5-10.1)
[2024-03-23 11:59] LABS: ALBUMIN 3.7 g/dl (3.4-5.0); BLOOD UREA NITROGEN 14.4 mg/dL (7-18)
[2024-03-23 12:04] LABS: TOT PROT 7.6 g/dl (6.4-8.2)
[2024-03-23] MEDS: cloNIDine HCL 0.1 MG TABLET PO PRN (17:19)
[2024-03-23] MEDS: IBUPROFEN 600 MG TABLET (FP) PO PRN (18:32)
[2024-03-24] MEDS: SERTRALINE HCL 50 MG TABLET (FP) PO SCH (09:52)
[2024-03-24] MEDS: methaDONE HCL 10 MG TABLET (FOR DETOX USE ONLY) PO ONE (09:53)
[2024-03-25] MEDS: NICOTINE POLACRILEX 4 MG LOZENGE BC PRN (14:19)
[2024-03-25] MEDS: diazePAM 5 MG TABLET PO ONE (19:45)
[2024-03-26] MEDS: methaDONE HCL 10 MG TABLET (FOR DETOX USE ONLY) PO ONE (09:13)
[2024-03-26] MEDS: diazePAM 5 MG TABLET PO SCH (09:56)
[2024-03-26 11:01] LABS: BASO % 0.8 % (0-2.0); EOS % 4.4 % (0-4.5); HEMATOCRIT 39.3 % (35.4-49); HEMOGLOBIN 13.5 GM/dL (11.7-16.9); LYMPH % 24.2 % (8-40); MCH 30.5 pg (25.7-33.7); MCHC 34.3 g/dl (32.0-35.9); MEAN CELL VOLUME 88.9 fl (80-96); MEAN PLT VOLUME 9.2 fl (7.5-11.1); MONO % 13.8 % (3.8-10.2); NEUT % 56.8 % (42.8-82.8); PLATELET COUNT 262 10^3/uL (134-434); RBC 4.42 M/mm3 (4.00-5.60); WHITE BLOOD COUNT 6.3 K/mm3 (4.0-10.0)
[2024-03-26] MEDS: PNEUMOC 20-VAL CONJ-DIP CRM/PF 0.5 ML SYRINGE IM ONE (12:30)
[2024-03-26] MEDS: hydrOXYzine PAMOATE 25 MG CAPSULE (FP) PO PRN (21:36)
[2024-03-27 06:40] VITALS: RESP 16
[2024-03-27 09:37] VITALS: BP 114/95; PULSE 110; TEMP 97.7
== END 2024-03-27 11:12 | disposition home or self-care (01) | DRG 897 ==
LOC: YASAS 10:13 → Y6N 12:42
PROVIDERS: ADMIT Allergy & Immunology; ATTEND Surgery
PROC: HZ2ZZZZ Detoxification Services for Substance Abuse Treatment (ICD-10-PCS; principal; 2024-03-22)
DX: F11.23 Opioid dependence with withdrawal (principal); F14.20 Cocaine dependence, uncomplicated; F19.282 Other psychoactive substance dependence with psychoactive substance-induced sleep disorder; F25.1 Schizoaffective disorder, depressive type; F90.9 Attention-deficit hyperactivity disorder, unspecified type; D72.829 Elevated white blood cell count, unspecified; N40.0 Benign prostatic hyperplasia without lower urinary tract symptoms
CPT/HCPCS: 36415; 80053; 80305; 80307; 85025; 85027; 86780; 90677; 93005; 93010; G0009

== ENCOUNTER 2024-06-05 13:46 | Inpatient (IN) | payer OTHER ==
[2024-06-05 14:43] VITALS: BMI 25.8
[2024-06-05] MEDS ORDERED: BENZONATATE 200 MG CAPSULE PO PRN (15:30)
[2024-06-05] MEDS ORDERED: guaiFENesin 600 MG TABLET.ER (FP) PO PRN (15:30)
[2024-06-05] MEDS ORDERED: BENZOCAINE/MENTHOL (CHLORASEPTIC ) LOZENGE MM PRN (15:30)
[2024-06-05] MEDS ORDERED: P-EPHED 60MG/TRIPROLIDI 2.5MG TABLET PO PRN (15:30)
[2024-06-05] MEDS ORDERED: ACETAMINOPHEN 325 MG TABLET (FP) PO PRN (15:30)
[2024-06-05] MEDS ORDERED: NALOXONE (NARCAN) HCL 4 MG/0.1 ML SPRAY NS PRN (15:30)
[2024-06-05] MEDS ORDERED: MAG HYDROX/AL HYDROX/SIMETH 30 ML UNIT-DOSE CUP PO PRN (15:30)
[2024-06-05] MEDS ORDERED: IBUPROFEN 400 MG TABLET (FP) PO PRN (15:30)
[2024-06-05] MEDS ORDERED: LOPERAMIDE HCL 2 MG CAPSULE PO PRN (15:30)
[2024-06-05] MEDS ORDERED: POLYETHYLENE GLYCOL (HEALTHYLAX) 3350 17 GM PACKET PO PRN (15:30)
[2024-06-05] MEDS ORDERED: MAGNESIUM HYDROX 2400MG/30ML ORAL SUSPENSION 30 ML CUP PO PRN (15:30)
[2024-06-05] MEDS ORDERED: DICYCLOMINE HCL 10 MG CAPSULE PO PRN (15:30)
[2024-06-05] MEDS ORDERED: ONDANSETRON *ODT* 4 MG TABLET SL PRN (15:30)
[2024-06-05] MEDS ORDERED: BISMUTH SUBSALICYLATE 262 MG/15 ML BTL PO PRN (15:30)
[2024-06-05] MEDS ORDERED: methaDONE HCL 10 MG TABLET (FOR DETOX USE ONLY) ONE (16:12)
[2024-06-05] MEDS: methaDONE HCL 10 MG TABLET (FOR DETOX USE ONLY) PO ONE (16:19)
[2024-06-05] MEDS: NICOTINE POLACRILEX 2 MG GUM BUC PRN (17:27)
[2024-06-05] MEDS: MELATONIN 5 MG TABLETS PO SCH (21:54)
[2024-06-05] MEDS: THIAMINE 100 MG TABLET PO SCH (21:54)
[2024-06-05] MEDS: METHOCARBAMOL 500 MG TABLET PO PRN (21:54)
[2024-06-05] MEDS: cloNIDine HCL 0.1 MG TABLET PO PRN (21:54)
[2024-06-06] MEDS: TAMSULOSIN HCL 0.4 MG CAP PO SCH (07:43)
[2024-06-06] MEDS: PRENATAL VITAMINS W/ FOLIC ACID TABLET (FP) PO SCH (09:11)
[2024-06-06] MEDS: NICOTINE POLACRILEX 2 MG GUM BUC PRN (10:06)
[2024-06-06 12:03] LABS: HEMATOCRIT 40.8 % (35.4-49); HEMOGLOBIN 13.9 GM/dL (11.7-16.9); MCH 31.4 pg (25.7-33.7); MEAN CELL VOLUME 92.2 fl (80-96); MEAN PLT VOLUME 9.4 fl (7.5-11.1); PLATELET COUNT 205 10^3/uL (134-434); RBC 4.43 M/mm3 (4.00-5.60); RDW 13.1 % (11.9-15.9); WHITE BLOOD COUNT 8.9 K/mm3 (4.0-10.0)
[2024-06-06 12:35] LABS: ALBUMIN 3.4 g/dl (3.4-5.0); CALCIUM 9.6 mg/dL (8.5-10.1); POTASSIUM 3.9 mmol/L (3.5-5.1)
[2024-06-06 12:36] LABS: BLOOD UREA NITROGEN 13.3 mg/dL (7-18)
[2024-06-06 12:40] LABS: BILIRUBIN,TOTAL 0.4 mg/dL (0.2-1); TOT PROT 7.1 g/dl (6.4-8.2)
[2024-06-06] MEDS: QUEtiapine FUMARATE 100 MG TABLET (FP) PO SCH (22:00)
[2024-06-07] MEDS: methaDONE HCL 10 MG TABLET (FOR DETOX USE ONLY) PO ONE (10:02)
[2024-06-07] MEDS: SERTRALINE HCL 50 MG TABLET (FP) PO SCH (10:02)
[2024-06-07] MEDS: NICOTINE POLACRILEX 2 MG LOZENGE BC PRN (14:48)
[2024-06-09] MEDS: methaDONE HCL 10 MG TABLET (FOR DETOX USE ONLY) PO ONE (09:27)
[2024-06-11] MEDS: NALOXONE (NYS OPIOID OVERDOSE PROGRAM) 4 MG/0.1 ML SPRAY NS PRN (09:10)
[2024-06-11] MEDS: IBUPROFEN 600 MG TABLET (FP) PO PRN (22:24)
[2024-06-12 08:50] VITALS: BP 138/75; PULSE 88; RESP 18; TEMP 97.7
== END 2024-06-12 10:15 | disposition home or self-care (01) | DRG 897 ==
LOC: YASAS 13:46 → Y6N 16:07
PROVIDERS: ADMIT Allergy & Immunology; ATTEND Surgery
PROC: HZ2ZZZZ Detoxification Services for Substance Abuse Treatment (ICD-10-PCS; principal; 2024-06-05)
DX: F11.23 Opioid dependence with withdrawal (principal); F14.20 Cocaine dependence, uncomplicated; F19.282 Other psychoactive substance dependence with psychoactive substance-induced sleep disorder; F17.210 Nicotine dependence, cigarettes, uncomplicated; F25.9 Schizoaffective disorder, unspecified; F41.9 Anxiety disorder, unspecified; N40.0 Benign prostatic hyperplasia without lower urinary tract symptoms; R74.01 Elevation of levels of liver transaminase levels
CPT/HCPCS: 36415; 80053; 80305; 85027

== ENCOUNTER 2024-10-07 12:32 | Inpatient (IN) | payer OTHER ==
[2024-10-07 12:51] VITALS: BMI 24.6
[2024-10-07] MEDS ORDERED: ONDANSETRON *ODT* 4 MG TABLET SL PRN (13:00)
[2024-10-07] MEDS ORDERED: ACETAMINOPHEN 325 MG TABLET (FP) PO PRN (13:00)
[2024-10-07] MEDS ORDERED: guaiFENesin 600 MG TABLET.ER (FP) PO PRN (13:00)
[2024-10-07] MEDS ORDERED: IBUPROFEN 400 MG TABLET (FP) PO PRN (13:00)
[2024-10-07] MEDS ORDERED: MAGNESIUM HYDROX 2400MG/30ML ORAL SUSPENSION 30 ML CUP PO PRN (13:00)
[2024-10-07] MEDS ORDERED: BISMUTH SUBSALICYLATE 524 MG/30 ML PO PRN (13:00)
[2024-10-07] MEDS ORDERED: NICOTINE POLACRILEX 2 MG GUM BUC PRN (13:00)
[2024-10-07] MEDS ORDERED: MAG HYDROX/AL HYDROX/SIMETH 30 ML UNIT-DOSE CUP PO PRN (13:00)
[2024-10-07] MEDS ORDERED: BENZOCAINE/MENTHOL (CHLORASEPTIC ) LOZENGE MM PRN (13:00)
[2024-10-07] MEDS ORDERED: DICYCLOMINE HCL 10 MG CAPSULE PO PRN (13:00)
[2024-10-07] MEDS ORDERED: P-EPHED 60MG/TRIPROLIDI 2.5MG TABLET PO PRN (13:00)
[2024-10-07] MEDS ORDERED: BENZONATATE 200 MG CAPSULE PO PRN (13:00)
[2024-10-07] MEDS ORDERED: IBUPROFEN 600 MG TABLET (FP) PO PRN (13:00)
[2024-10-07] MEDS ORDERED: POLYETHYLENE GLYCOL (HEALTHYLAX) 3350 17 GM PACKET PO PRN (13:00)
[2024-10-07] MEDS ORDERED: NALOXONE (NARCAN) HCL 4 MG/0.1 ML SPRAY NS PRN (13:00)
[2024-10-07] MEDS ORDERED: LOPERAMIDE HCL 2 MG CAPSULE PO PRN (13:00)
[2024-10-07] MEDS ORDERED: methaDONE HCL 10 MG TABLET (FOR DETOX USE ONLY) ONE (13:26)
[2024-10-07] MEDS: methaDONE HCL 10 MG TABLET (FOR DETOX USE ONLY) PO ONE (13:31)
[2024-10-07] MEDS: NICOTINE POLACRILEX 2 MG LOZENGE BC PRN (14:01)
[2024-10-07] MEDS: cloNIDine HCL 0.1 MG TABLET PO PRN (14:59)
[2024-10-07] MEDS: THIAMINE 100 MG TABLET PO SCH (23:12)
[2024-10-07] MEDS: MELATONIN 5 MG TABLETS PO SCH (23:12)
[2024-10-08] MEDS: PRENATAL VITAMINS W/ FOLIC ACID TABLET (FP) PO SCH (10:52)
[2024-10-08] MEDS ORDERED: DEXTROAMPHETAMINE/AMPHETAMINE 10 MG CAP.ER.24H PO SCH (12:30)
[2024-10-08] MEDS: SERTRALINE HCL 50 MG TABLET (FP) PO SCH (13:16)
[2024-10-08] MEDS: clonazePAM 1 MG ODT TABLETS SL SCH (13:16)
[2024-10-08] MEDS: DEXTROAMPHETAMINE PO SCH (14:03)
[2024-10-08] MEDS: AMPHETAMINE PO SCH (14:03)
[2024-10-08] MEDS: QUEtiapine FUMARATE 300 MG TABLET PO SCH (21:36)
[2024-10-08] MEDS ORDERED: SUVOREXANT 10 MG TABLET PO PRN (22:00)
[2024-10-09] MEDS: methaDONE HCL 10 MG TABLET (FOR DETOX USE ONLY) PO ONE (09:26)
[2024-10-09] MEDS: SUVOREXANT 10 MG TABLET PO PRN (22:36)
[2024-10-10] MEDS: TAMSULOSIN HCL 0.4 MG CAP PO ONE (11:43)
[2024-10-11] MEDS: methaDONE HCL 10 MG TABLET (FOR DETOX USE ONLY) PO ONE (10:08)
[2024-10-12 09:00] VITALS: BP 106/58; PULSE 75; RESP 18; TEMP 97.6
== END 2024-10-12 09:30 | disposition other institution (70) | DRG 897 ==
LOC: YASAS 12:32 → Y6N 13:05
PROVIDERS: ADMIT Neuromusculoskeletal Medicine & OMM; ATTEND Family Medicine Addiction Medicine
PROC: HZ2ZZZZ Detoxification Services for Substance Abuse Treatment (ICD-10-PCS; principal; 2024-10-07)
DX: F11.23 Opioid dependence with withdrawal (principal); F19.280 Other psychoactive substance dependence with psychoactive substance-induced anxiety disorder; F19.282 Other psychoactive substance dependence with psychoactive substance-induced sleep disorder; F17.210 Nicotine dependence, cigarettes, uncomplicated; F25.9 Schizoaffective disorder, unspecified; F90.9 Attention-deficit hyperactivity disorder, unspecified type; N40.0 Benign prostatic hyperplasia without lower urinary tract symptoms
CPT/HCPCS: 80305; 80307; 93005; 93010